=== PATIENT | female | born 1980 | race Caucasian/White ===

== ENCOUNTER 2020-12-23 13:13 | Emergency (ER) | payer OTHER ==
[2020-12-23 14:50] LABS: HEMOGLOBIN 13.3 gm/dl (12.3-15.3); RED BLOOD COUNT 4.92 M/UL (4.00-5.10); WHITE BLOOD COUNT 7.1 K/UL (4.5-11.0)
[2020-12-23 15:09] LABS: BUN/CREATININE RATIO 14 (0-10)
[2020-12-23] MEDS ORDERED: MACROBID 100 M100 MG PO (16:16)
== END 2020-12-23 16:35 | disposition home or self-care (01) ==
LOC: ER1 13:13
PROVIDERS: Physician Assistant Medical
DX: O23.41 Unspecified infection of urinary tract in pregnancy, first trimester (principal); O99.331 Smoking (tobacco) complicating pregnancy, first trimester; F17.210 Nicotine dependence, cigarettes, uncomplicated; Z87.42 Personal history of other diseases of the female genital tract; Z88.0 Allergy status to penicillin; Z3A.01 Less than 8 weeks gestation of pregnancy
CPT/HCPCS: 36415; 76817; 80053; 81001; 84702; 84703; 85025; 85610; 86900; 86901; 87077; 87086; 87186; 99284

== ENCOUNTER 2020-12-31 19:44 | Emergency (ER) | payer OTHER ==
[~2020-12-31 19:44] MED LIST: MACROBID 100 M100 MG PO
[2020-12-31 21:25] LABS: HEMOGLOBIN 11.6 gm/dl (12.3-15.3); RED BLOOD COUNT 4.32 M/UL (4.00-5.10); WHITE BLOOD COUNT 10.5 K/UL (4.5-11.0)
[2020-12-31 22:00] LABS: BUN/CREATININE RATIO 20 (0-10)
== END 2020-12-31 23:06 | disposition home or self-care (01) ==
LOC: ER1 19:44
PROVIDERS: Emergency Medicine
DX: O20.0 Threatened abortion (principal)
CPT/HCPCS: 36415; 80053; 84702; 85025; 86850; 86900; 86901; 99284

== ENCOUNTER 2021-01-02 17:22 | Day surgery (SDC) | payer OTHER ==
[~2021-01-02] VITALS: Ht 165.1 cm; Wt 89.4 kg
[2021-01-02 18:27] LABS: HEMOGLOBIN 10.6 gm/dl (12.3-15.3); WHITE BLOOD COUNT 8.8 K/UL (4.5-11.0)
--- NOTE | 2021-01-02 19:24 | NUR ---
PT WENT TO SURGERY BEFORE PRIMARY RN WAS ABLE TO ASSESS AND ADMIT PT. DR. DIGGS AND PACU NURSE WERE ON THE FLOOR TO TAKE PT TO SURGERY AT SHIFT CHANGE.
[2021-01-02] MEDS ORDERED: HYDROCODON-ACE1 EAC4 PO (19:49)
[2021-01-02] MEDS ORDERED: IBUPROFEN600 MG PO (19:49)
== END 2021-01-02 22:00 | disposition home or self-care (01) ==
LOC: OR 17:22 → M/S 17:22 → OR 22:00 → M/S 22:01 → EDSTATUS 01-05 14:12
PROVIDERS: Obstetrics & Gynecology
PROC: 3E0P7VZ Introduction of Hormone into Female Reproductive, Via Natural or Artificial Opening (ICD-10-PCS; 2021-01-02)
PROC: 10D17ZZ Extraction of Products of Conception, Retained, Via Natural or Artificial Opening (ICD-10-PCS; principal; 2021-01-02 19:18)
DX: O03.4 Incomplete spontaneous abortion without complication (principal); F17.210 Nicotine dependence, cigarettes, uncomplicated; I10 Essential (primary) hypertension; E66.9 Obesity, unspecified; F41.9 Anxiety disorder, unspecified; F11.20 Opioid dependence, uncomplicated; Z68.32 Body mass index [BMI] 32.0-32.9, adult; Z88.0 Allergy status to penicillin; Z86.19 Personal history of other infectious and parasitic diseases; Z79.899 Other long term (current) drug therapy; Z20.822 Contact with and (suspected) exposure to COVID-19
CPT/HCPCS: 36415; 80053; 84702; 85025; 86850; 86900; 86901; 87635; 99284; J1100; J2001; J2210; J2250; J2405; J2550; J2704; J2765; J2795; J3010; J7030; J7070; J7120